=== PATIENT | male | born 1995 | race Caucasian/White ===

== ENCOUNTER 2023-06-03 18:14 | Emergency (ER) | payer OTHER ==
[~2023-06-03] VITALS: Ht 190.5 cm; Wt 109.1 kg
[2023-06-03 18:19] VITALS: TEMP 97.9
[2023-06-03] MEDS ORDERED: PERCT PO (20:01)
[2023-06-03] MEDS ORDERED: SULF-261 PO (20:01)
[2023-06-03] MEDS: HYDROCODONE/ACETAMINOPHEN 10-325 MG TABLET PO ONE (20:12)
[2023-06-03] MEDS: CEPHALEXIN MONOHYDRATE 500 MG CAPSULE PO ONE (20:12)
[2023-06-03] MEDS: SILVER SULFADIAZINE 1% 25 GM CREAM TP ONE (20:39)
[2023-06-03] MEDS: PERTUSS(ACELL),DIPH,TET VAC/PF 0.5 ML SYRINGE IM. ONE (20:39)
[2023-06-03 21:28] VITALS: BP 134/74; PULSE 66; RESP 15
== END 2023-06-03 21:31 | disposition home or self-care (01) ==
LOC: EMS 18:18
DX: T23.202A Burn of second degree of left hand, unspecified site, initial encounter (principal); X10.2XXA Contact with fats and cooking oils, initial encounter; Y93.89 Activity, other specified; Y92.89 Other specified places as the place of occurrence of the external cause; Y99.8 Other external cause status
CPT/HCPCS: 16020; 90471; 90715; 99283